=== PATIENT | female | born 1975 | race Caucasian/White ===

== ENCOUNTER 2017-10-07 13:06 | Emergency (ER) | payer OTHER ==
[~2017-10-07] VITALS: Ht 170.2 cm; Wt 72.6 kg
[2017-10-07] MEDS ORDERED: KETOROLAC 60 MG/2 ML VIAL. IM ONE (14:00)
[2017-10-07] MEDS ORDERED: METH4TAB2 PO (14:05)
[2017-10-07] MEDS ORDERED: IBUP800T19 PO (14:05)
[2017-10-07] MEDS ORDERED: TRAM-48 PO (14:05)
--- NOTE | 2017-10-07 14:05 | PHYS DOC ---
Past History Past Medical History: No Pertinent History Past Surgical History: , Hysterectomy, Other Alcohol Use: None Drug Use: None Adult General Chief Complaint Chief Complaint: KNEE SWELLING HPI HPI 42-year-old female patient with history of chronic right knee pain complaining of right knee edema and increasing pain for the last 3 months. Patient states she has more pain during. With walking and denies new focal neuro deficit. Patient state for the last few days she has had episode of charley horses in her right lower extremity and her pain getting worse and became constant. Patient denies new injury, fever and chills. Review of Systems Review of Systems Constitutional: Denies fever or chills [] Eyes: Denies change in visual acuity, redness, or eye pain [] HENT: Denies nasal congestion or sore throat [] Respiratory: Denies cough or shortness of breath [] Cardiovascular: No additional information not addressed in HPI [] GI: Denies abdominal pain, nausea, vomiting, bloody stools or diarrhea [] : Denies dysuria or hematuria [] Musculoskeletal: Denies back pain, reports joint pain [] Integument: Denies rash or skin lesions [] Neurologic: Denies headache, focal weakness or sensory changes [] Endocrine: Denies polyuria or polydipsia [] All other systems were reviewed and found to be within normal limits, except as documented in this note. Current Medications Current Medications Current Medications Medications (Trade) Dose Ordered Sig/[facility] Start Time Stop Time Status Last Admin Dose Admin Ketorolac Tromethamine (Toradol Im) 60 mg 1X ONCE 10/07/17 13:45 10/07/17 13:46 UNV Allergies Allergies Allergies Coded Allergies Type Severity Reaction Last Updated Verified No Known Drug Allergies 06/29/15 No Physical Exam Physical Exam Constitutional: Well developed, well nourished, mild distress, non-toxic appearance. [] HENT: Normocephalic, atraumatic Eyes: PERRLA, EOMI, conjunctiva normal, no discharge. [] Neck: Normal range of motion, no tenderness, supple, no stridor. [] Cardiovascular:Heart rate regular rhythm, no murmur [] Lungs & Thorax: Bilateral breath sounds clear to auscultation [] Extremities: Right knee with moderate edema and limited range of motion with pain, no neurovascular deficit, no cyanosis, no clubbing. [] Neurologic: Alert and oriented X 3, normal motor function, normal sensory function, no focal deficits noted. [] Psychologic: Affect normal, judgement normal, mood normal. [] Current Patient Data Vital Signs Vital Signs Date Time Temp Pulse Resp B/P (MAP) Pulse Ox O2 Delivery O2 Flow Rate FiO2 10/07/17 13:22 98.2 84 22 98 Room Air EKG EKG [] Radiology/Procedures Radiology/Procedures [] Course & Med Decision Making Course & Med Decision Making Evaluation of patient in ER showed male patient with chronic right knee pain and edema that getting worse for the last 3 months and had episodes of sharp pain for the last few days. Patient had moderate edema of right knee with limited range of motion secondary to pain. Patient with MRI of the for more evaluation because she did have an MRI since 2010. Patient instructed to follow- up with her primary care physician for ordering the MRI and then to follow-up with airline lounge receptionist orthopedic physician Dr Guerra. Knee immobilizer was applied and crutches was provided. Patient had Toradol IM and felt better. Dragon Disclaimer Dragon Disclaimer This electronic medical record was generated, in whole or in part, using a voice recognition dictation system. Departure Departure: Impression: Primary Impression: Right knee DJD Additional Impressions: Arthralgia Effusion of right knee Disposition: 01 HOME, SELF-CARE Condition: STABLE Referrals: CHEYANNE ROWLEY (PCP) Patient Instructions: Arthralgia, Crutch Use, Knee Immobilization Additional Instructions: Follow-up with Dr. Guerra airline lounge receptionist orthopedic physician call [phone] to make an appointment Apply ice on right knee Follow-up with your primary care physician in one or 2 days for ordering MRI regarding joint effusion and pain Return to ER if not getting better Scripts Tramadol Hcl (ULTRAM) 50 Mg Tablet 50 MG PO PRN Q6HRS PRN for PAIN, #20 TAB Prov: JENNIFER GUTIERRES MD 10/07/17 Ibuprofen (IBUPROFEN) 800 Mg Tablet 1 TAB PO TID, #30 TAB Prov: JENNIFER GUTIERRES MD 10/07/17 Methylprednisolone (MEDROL) 4 Mg Tab.ds.pk 1 PKG PO UD, #1 PKG Prov: JENNIFER GUTIERRES MD 10/07/17 Problem Qualifiers JENNIFER GUTIERRES MD Oct 07, 2017 14:05
[2017-10-07 14:17] VITALS: BP 121/68
== END 2017-10-07 14:20 | disposition home or self-care (01) ==
LOC: ER 13:06
DX: M17.11 Unilateral primary osteoarthritis, right knee (principal)
CPT/HCPCS: 29505; 96372; 99283; J1885

== ENCOUNTER 2018-06-07 18:40 | Emergency (ER) | payer OTHER ==
[~2018-06-07] VITALS: Ht 170.2 cm; Wt 74.8 kg
[~2018-06-07 18:40] MED LIST: IBUP800T19 PO; METH4TAB2 PO; TRAM-48 PO
--- NOTE | 2018-06-07 19:13 | ED.ADGEN ---
Past History Past Medical History: No Pertinent History Past Surgical History: , Hysterectomy, Other Alcohol Use: None Drug Use: None Adult General Chief Complaint Chief Complaint leg pain HPI HPI 43 years old female presented emergency department with the right foot pain and swelling noticed that about a week ago she also noticed that few ecchymosis over the right leg she denies trauma denies any recent travel she is not on any control and no history of blood clots in the past Review of Systems Review of Systems Constitutional: Denies fever or chills [] Eyes: Denies change in visual acuity, redness, or eye pain [] HENT: Denies nasal congestion or sore throat [] Respiratory: Denies cough or shortness of breath [] Cardiovascular: No additional information not addressed in HPI [] GI: Denies abdominal pain, nausea, vomiting, bloody stools or diarrhea [] : Denies dysuria or hematuria [] Musculoskeletal: Denies back pain Integument: Denies rash or skin lesions [] Neurologic: Denies headache, focal weakness or sensory changes [] Endocrine: Denies polyuria or polydipsia [] All other systems were reviewed and found to be within normal limits, except as documented in this note. Allergies Allergies Allergies Coded Allergies Type Severity Reaction Last Updated Verified No Known Drug Allergies 06/29/15 No Physical Exam Physical Exam Constitutional: Well developed, well nourished, no acute distress, non-toxic appearance. [] HENT: Normocephalic, atraumatic, bilateral external ears normal, oropharynx moist, no oral exudates, nose normal. [] Eyes: PERRLA, EOMI, conjunctiva normal, no discharge. [] Neck: Normal range of motion, no tenderness, supple, no stridor. [] Cardiovascular:Heart rate regular rhythm, no murmur [] Lungs & Thorax: Bilateral breath sounds clear to auscultation [] Abdomen: Bowel sounds normal, soft, no tenderness, no masses, no pulsatile masses. [] Skin: Warm, dry, no erythema, no rash. [] Back: No tenderness, no CVA tenderness. [] Extremities: Right thigh and leg tenderness tenderness, no cyanosis, no clubbing , ROM intact, no edema. [] Neurologic: Alert and oriented X 3, normal motor function, normal sensory function, no focal deficits noted. [] Psychologic: Affect normal, judgement normal, mood normal. [] Current Patient Data Vital Signs Vital Signs Date Time Temp Pulse Resp B/P (MAP) Pulse Ox O2 Delivery O2 Flow Rate FiO2 06/07/18 19:58 70 16 113/64 (80) 96 Room Air 06/07/18 19:00 98.9 EKG EKG [] Radiology/Procedures Radiology/Procedures [] Course & Med Decision Making Course & Med Decision Making Pertinent Labs and Imaging studies reviewed. (See chart for details) [] Final Impression Final Impression [] Problems: (1) Varicose vein of leg Qualifiers: Qualified Codes: I83.91 - Asymptomatic varicose veins of right lower extremity Dragon Disclaimer Dragon Disclaimer This electronic medical record was generated, in whole or in part, using a voice recognition dictation system. MARIUSZ BECK MD Jun 07, 2018 19:13
--- NOTE | 2018-06-07 20:20 | RAD ---
Right lower extremity venous doppler ultrasound History: Right lower extremity pain and swelling for one week Comparison: None Findings: Multiple grayscale, color, and duplex spectral analysis sonographic images were acquired of the right lower extremity veins to evaluate for the presence of DVT. There is normal phasicity. Normal compression, color-flow, and augmentation is demonstrated from the right common femoral to the popliteal veins. There is normal color flow of the proximal greater saphenous and profunda femoris veins. There is normal color flow of segments of the calf veins. Impression: 1. There is no evidence of deep venous thrombosis from the right common femoral to popliteal veins. Electronically signed by: Suraj Daniels MD (06/07/2018 8:17 PM) [facility]
[2018-06-07 20:28] VITALS: BP 114/59
== END 2018-06-07 20:36 | disposition home or self-care (01) ==
LOC: ER 18:40
DX: I83.811 Varicose veins of right lower extremity with pain (principal); I83.891 Varicose veins of right lower extremity with other complications
CPT/HCPCS: 93971; 99284-25